=== PATIENT | male | born 1995 | race Caucasian/White ===

== ENCOUNTER 2016-11-08 11:07 | Emergency (ER) | payer OTHER ==
--- NOTE | 2016-11-08 12:52 | RAD ---
HISTORY: Right calf pain COMPARISONS: None relevant TECHNIQUE: Multiple transverse and longitudinal ultrasound images were obtained of the right lower extremity from the level of the common femoral vein inferiorly through to the infrapopliteal veins using grayscale, color Doppler, and spectral Doppler imaging with and without compression and with augmentation. Comparison images were obtained of the contralateral common femoral vein. FINDINGS: Evaluation of the calf veins is limited. VEINS: The venous system of the right lower extremity is compressible throughout its course, with normal flow on color Doppler imaging and normal response to augmentation on spectral Doppler imaging. SOFT TISSUES: Unremarkable. OTHER FINDINGS: None. IMPRESSION: NO RIGHT LOWER EXTREMITY DEEP VEIN THROMBOSIS
[2016-11-08 12:59] VITALS: BP 129/61
--- NOTE | 2016-11-16 09:40 | ED ---
Lower Extremity - HPI Summary HPI Summary: Patient arrives 6 days after surgery to his arm with CC of right calf pain since this morning. He is concerned with a DVT Denies chest pain, pressure or SOB. He states the pain is located behind his right knee and radiates down the leg to the calf. Denies other pain or symptoms. Denies trauma or injury. - History of Current Complaint Chief Complaint: EDExtremityLower Stated Complaint: RT LEG PAIN /POSS DVT Time Seen by Provider: 11/08/16 12:00 Hx Obtained From: Patient Onset of Pain: Immediate Onset/Duration: Hours Severity Initially: Moderate Severity Currently: Moderate Pain Intensity: 5 Pain Scale Used: 0-10 Numeric Timing: Constant Location: Is Discrete @ - right posterior knee and calf Associated Signs And Symptoms: Positive: Negative Aggravating Factor(s): Standing, Ambulation Alleviating Factor(s): Rest Able to Bear Weight: Yes - Risk Factors Gout Risk Factors: Negative DVT Risk Factors: Recent Period Of Bedrest, Recent Surgery Septic Arthritis Risk Factor: Negative - Allergies/Home Medications Allergies/Adverse Reactions: Allergies Allergy/AdvReac Type Severity Reaction Status Date / Time No Known Allergies Allergy Verified 12/12/15 11:10 PMH/Surg Hx/FS Hx/Imm Hx Previously Healthy: Yes Infectious Disease History: No Infectious Disease History: Denies: History Other Infectious Disease, Traveled Outside the [place] in Last 30 Days - Family History Known Family History: Positive: None - Social History Occupation: Employed Full-time Lives: With Family Alcohol Use: None Hx Substance Use: No Substance Use Type: Reports: None Hx Tobacco Use: No Smoking Status (MU): Never Smoked Tobacco Review of Systems Constitutional: Negative Cardiovascular: Negative Respiratory: Negative Gastrointestinal: Negative Positive: Myalgia - right calf pain Skin: Negative Neurological: Negative Psychological: Normal All Other Systems Reviewed And Are Negative: Yes Physical Exam Triage Information Reviewed: Yes Vital Signs On Initial Exam: Initial Vitals Temp Pulse Resp BP Pulse Ox 97.4 F 74 18 127/65 100 11/08/16 11:19 11/08/16 11:19 11/08/16 11:19 11/08/16 11:19 11/08/16 11:19 Vital Signs Reviewed: Yes Appearance: Positive: Well-Appearing, Well-Nourished Skin: Positive: Warm, Skin Color Reflects Adequate Perfusion Head/Face: Positive: Normal Head/Face Inspection Eyes: Positive: GUILLE Neck: Positive: Supple Respiratory/Lung Sounds: Positive: Clear to Auscultation, Breath Sounds Present Cardiovascular: Positive: Normal, RRR Bowel Sounds: Positive: Present Musculoskeletal: Positive: Pain @ - right posterior calf Neurological: Positive: Sensory/Motor Intact, Speech Normal Psychiatric: Positive: Normal Diagnostics - Vital Signs Vital Signs Temp Pulse Resp BP Pulse Ox 11/08/16 12:58 98.0 F 68 18 129/61 100 11/08/16 11:19 97.4 F 74 18 127/65 100 - Laboratory Lab Statement: Any lab studies that have been ordered have been reviewed, and results considered in the medical decision making process. - Ultrasound No standard instances Ultrasound Interpretation: No Acute Changes Ultrasound Interpretation Completed By: Radiologist - no DVT noted Lower Extremity Course/Dx - Course Course Of Treatment: US ordered and interpreted as negative for DVT. Patient encouraged to follow up with PCP. Patient OK to be discharged. - Diagnoses Differential Diagnosis/HQI/PQRI: Positive: Contusion, DVT, Sprain, Strain Provider Diagnoses: Leg pain, right Discharge - Discharge Plan Condition: Stable Disposition: HOME Referrals: [facility] VIRGILIO Alvarez [Primary Care Provider] - Additional Instructions: Follow up with PCP. If you develop worsening calf pain, chest pressure or pain or cough, come back to ED. Tylenol as needed for any discomfort.
== END 2016-11-08 13:52 | disposition home or self-care (01) ==
LOC: ED 11:07
DX: M79.604 Pain in right leg (principal)
CPT/HCPCS: 99281